=== PATIENT | male | born 1955 | race Caucasian/White ===

== ENCOUNTER 2019-10-11 14:54 | Observation (INO) ==
[2019-10-11] MEDS ORDERED: LEVOFLOXACIN INJ 750 MG in PREMIX 1 EACH IV STA (15:18)
[2019-10-11] MEDS ORDERED: ONDANSETRON 4 MG/2 ML VIAL IV STA (15:18)
[2019-10-11] MEDS ORDERED: methylPREDNISolone SOD SUC 125 MG/2 ML VIAL IV STA (15:18)
[2019-10-11] MEDS ORDERED: ALBUTEROL 2.5 MG/3 ML NEB RESP TX SCH (15:30)
[2019-10-11 16:16] LABS: PT Patient Result 10.6 SECS (9.6-12.2); Partial Thromboplastin Time 27.3 SECS (20.8-36.0)
[2019-10-11 16:29] LABS: Alanine Aminotransferase 18 U/L (16-61); Albumin 3.6 G/DL (3.4-5.0); Alkaline Phosphatase 71 U/L (45-117); Aspartate Amino Transferase 9 U/L (0-37); Basophils # 0.1 10*3/uL (0.0-0.2); Basophils % 0.7 % (0.0-0.8); Bilirubin,Total < 0.39 MG/DL (0.2-1.0); Blood Urea Nitrogen 23 MG/DL (7-18); Calcium 9.2 MG/DL (8.5-10.1); Eosinophils # 0.4 10*3/uL (0.0-0.87); Eosinophils % 4.1 % (0.00-10.9); Estimated Glom Filtration Rate 87 ML/MIN; Glucose 138 MG/DL (74-106); Hematocrit 49.7 VOL% (42.0-52.0); Hemoglobin 15.2 GM/DL (14.0-18.0); Immature Granulocytes % 0.3 %; Immature Granulocytes Absolute 0.03 #; Lymphocytes # 2.1 10*3/uL (1.4-4.0); Lymphocytes % 19.5 % (21.2-54.2); Mean Corpuscular HGB Conc 30.6 GM/DL (32-36); Mean Corpuscular Volume 90.4 FL (87-102); Mean Platelet Volume 10.1 FL (9.6-12.0); Monocytes % 6.9 % (1.7-12.7); Neutrophils % 68.5 % (38.7-73.9); Osmolality,Calculated 284.4 MOS/KG (273-304); Platelet Count 206 T/CUMM (130-400); Red Cell Distribution Width 13.9 % (9.3-17.3); Total Protein 7.5 G/DL (6.4-8.3); Troponin I < 0.015 NG/ML (0.00-0.045); White Blood Count 10.6 T/CUMM (4-12)
[2019-10-11] MEDS ORDERED: DOCUSATE SODIUM 100 MG CAPSULE PO PRN (17:35)
[2019-10-11] MEDS ORDERED: LACTULOSE 20 GM/30 ML UDCUP PO PRN (17:35)
[2019-10-11] MEDS ORDERED: ONDANSETRON 4 MG/2 ML VIAL IV PRN (17:35)
[2019-10-11] MEDS: MORPHINE 4 MG/1 ML VIAL IV PRN (20:17)
[2019-10-11] MEDS: methylPREDNISolone SOD SUC 40 MG/1 ML VIAL IV SCH (20:19)
[2019-10-11] MEDS ORDERED: DULoxetine 30 MG CAPSULE PO SCH (21:00)
[2019-10-11] MEDS: GABAPENTIN 400 MG CAPSULE PO SCH (21:49)
[2019-10-11] MEDS: busPIRone 5 MG TABLET PO SCH (21:50)
[2019-10-11] MEDS: FERROUS SULFATE 325 MG TABLET PO SCH (21:50)
[2019-10-11] MEDS: oxyCODONE/ACETAMINOPHEN 5-325 MG TABLET PO PRN (21:51)
[2019-10-11] MEDS: BACLOFEN 10 MG TABLET PO SCH (21:54)
[2019-10-12] MEDS: MORPHINE 4 MG/1 ML VIAL IV PRN ×2 (00:35→06:29)
[2019-10-12] MEDS: oxyCODONE/ACETAMINOPHEN 5-325 MG TABLET PO PRN ×2 (03:54→09:47)
[2019-10-12 06:00] LABS: Albumin 3.3 G/DL (3.4-5.0); Bilirubin,Total 0.6 MG/DL (0.2-1.0); Calcium 9.1 MG/DL (8.5-10.1); Osmolality,Calculated 286.4 MOS/KG (273-304); Thyroid Stimulating Hormone 0.318 uIU/ml (0.358-3.74); Total Protein 7.2 G/DL (6.4-8.3)
[2019-10-12 06:05] LABS: Basophils % 0.1 % (0.0-0.8); Hematocrit 48.2 VOL% (42.0-52.0); Hemoglobin 14.3 GM/DL (14.0-18.0); Immature Granulocytes % 0.5 %; Immature Granulocytes Absolute 0.04 #; Lymphocytes # 0.7 10*3/uL (1.4-4.0); Lymphocytes % 9.4 % (21.2-54.2); Mean Corpuscular HGB Conc 29.7 GM/DL (32-36); Mean Corpuscular Volume 92.7 FL (87-102); Mean Platelet Volume 10.9 FL (9.6-12.0); Monocytes % 0.8 % (1.7-12.7); Neutrophils % 89.2 % (38.7-73.9); Platelet Count 190 T/CUMM (130-400); Red Cell Distribution Width 13.9 % (9.3-17.3); White Blood Count 7.4 T/CUMM (4-12)
[2019-10-12] MEDS: methylPREDNISolone SOD SUC 40 MG/1 ML VIAL IV SCH (06:28)
[2019-10-12] MEDS ORDERED: ASPIRIN CHEW 81 MG TABLET PO SCH (09:00)
[2019-10-12] MEDS ORDERED: TAMSULOSIN 0.4 MG CAPSULE PO SCH (09:00)
[2019-10-12] MEDS ORDERED: DILTIAZEM CD 120 MG CAPSULE PO SCH (09:00)
[2019-10-12] MEDS ORDERED: ARIPiprazole 10 MG TABLET PO SCH (09:00)
[2019-10-12] MEDS ORDERED: LEVOFLOXACIN INJ 750 MG in PREMIX 1 EACH IV SCH (09:00)
[2019-10-12] MEDS ORDERED: MULTIVITAMIN (CENTRUM) TABLET PO SCH (09:00)
[2019-10-12] MEDS ORDERED: CLOPIDOGREL 75 MG TABLET PO SCH (09:00)
[2019-10-12] MEDS ORDERED: FUROSEMIDE 20 MG/2 ML VIAL IV ONE (09:41)
[2019-10-12] MEDS: GABAPENTIN 400 MG CAPSULE PO SCH (11:14)
[2019-10-12] MEDS: busPIRone 5 MG TABLET PO SCH (11:14)
[2019-10-12] MEDS: FERROUS SULFATE 325 MG TABLET PO SCH (11:15)
[2019-10-12] MEDS: BACLOFEN 10 MG TABLET PO SCH (11:15)
[2019-10-12 13:07] VITALS: BP 117/62
== END 2019-10-12 14:07 ==
LOC: N.ED 14:54 → N.EDINP 14:54 → N.5E 19:22
PROVIDERS: ADMIT Internal Medicine; ATTEND Internal Medicine